=== PATIENT | female | born 1960 | race African-American/Black ===

== ENCOUNTER 2018-03-18 17:07 | Emergency (ER) | payer OTHER ==
[~2018-03-18] VITALS: Ht 160 cm; Wt 77.6 kg
[~2018-03-18 17:07] MED LIST: ASPIR 8181 M1 PO; ASPIRIN81 M1 PO; CINNAMON500 MG PO; DIAZEPAM2 MG PO; ENALAPRIL MALEAT5 M1 PO; FISH OIL SOFTG1 EACH PO; FLEXERIL10 MG PO; FLEXERIL5 MG PO; FOLIC ACID1 MG PO; GLUCOVANCE 51 TABLET PO; INDOCIN50 MG PO; LIDODERM 5% P1 PATCH TD; METHOTREXATE2.5 MG PO; MOBIC15 MG PO; NAPROSYN500 MG PO; NIACIN100 MG PO; NORCO 5/3251 TABLET PO; PREDNISONE2.5 MG PO; PRENATAL TABLE1 EAC3 PO; PRENATAL1 EACH PO; PROPOXYPHENE1 TABLET PO; ULTRAM50 MG PO; VALIUM2 MG PO; VALIUM5 MG PO; WOMEN'S ONE DA1 EACH PO; ZITHROMAX Z-PA250 MG PO; vitamin d
[2018-03-18] MEDS ORDERED: VALIUM5 MG PO (19:11)
[2018-03-18] MEDS ORDERED: ULTRAM50 MG PO (19:11)
[2018-03-18 19:26] VITALS: BP 142/86
== END 2018-03-18 19:27 | disposition home or self-care (01) ==
LOC: EXP 17:07 → EME 17:07 → EXP 19:27
DX: M62.838 Other muscle spasm (principal); M54.2 Cervicalgia; R51 Headache; V49.60XA Unspecified car occupant injured in collision with unspecified motor vehicles in traffic accident, initial encounter; Y92.410 Unspecified street and highway as the place of occurrence of the external cause; Z88.0 Allergy status to penicillin; Z88.6 Allergy status to analgesic agent; Z91.013 Allergy to seafood; F17.200 Nicotine dependence, unspecified, uncomplicated
CPT/HCPCS: 70450; 72125; 99281; 99284